=== PATIENT | female | born 1970 | race Caucasian/White ===

== ENCOUNTER 2019-02-27 12:39 | Emergency (ER) | payer SELFPAY ==
[2019-02-27 13:47] LABS: Bilirubin Negative (Negative); Blood, Urine Negative (Negative); Glucose, Urine (Dipstick) Negative (Negative); Leukocyte Negative (Negative); Nitrite Negative (Negative); Protein, Urine (Dipstick) 30 mg/dL (Neg-Trace); Urobilinogen 0.2 mg/dL (Less than 2)
[2019-02-27 13:48] LABS: Clarity Hazy (Clear)
[2019-02-27 13:51] LABS: Bacteria/HPF 1+ HPF (None Seen); RBC/HPF 0-3 HPF (0-3); WBC/HPF 0-3 HPF (0-3)
== END 2019-02-27 14:10 | disposition home or self-care (01) ==
LOC: MADERS 12:39
DX: M54.6 Pain in thoracic spine (principal); F17.210 Nicotine dependence, cigarettes, uncomplicated
CPT/HCPCS: 81003; 81015; 99283

== ENCOUNTER 2019-09-07 06:24 | Emergency (ER) | payer SELFPAY ==
[2019-09-07] MEDS ORDERED: Nitroglycerin 2% Ointment 1 INCH/1 GM Packet ONE (06:47)
[2019-09-07 06:50] LABS: #Basophils 0.1 thou/uL (0.0-0.2); #Eosinphils 0.1 thou/uL (0.0-0.7); #Lymphocytes 2.9 thou/uL (1.20-3.40); #Monocytes 0.7 thou/uL (0.11-0.59); #Neutrophils 2.6 thou/uL (1.40-6.50); %Basophils 1.6 % (0.0-1.0); %Lymphocytes 45.7 % (21.0-51.0); %Monocytes 10.8 % (0.0-10.0); %Neutrophils 40.9 % (42.0-75.0); Hemoglobin 14.5 g/dL (12.0-16.0); Mean Corpuscular HGB CONC 32.1 g/dL (32.0-36.0); Mean Corpuscular Hemoglobin 34.1 pg (27.0-31.0); Mean Corpuscular Volume 106.3 fL (78.0-98.0); Mean Platelet Volume 7.4 fL (7.4-10.4); Platelet Count 213 thou/uL (130-400); RBC Distribution Width 11.2 % (11.5-14.5); Red Blood Cell (RBC) Count 4.25 mill/uL (4.20-5.40); White Blood Cell (WBC) Count 6.4 thou/uL (4.8-10.8)
[2019-09-07 06:56] LABS: ALT (SGPT) 306 U/L (8-55); AST (SGOT) 166 U/L (5-34); Albumin 4.6 g/dL (3.5-5.0); Alkaline Phosphatase 87 U/L (40-110); Anion Gap 22 mmol/L (10-20); BUN (Urea Nitrogen) 8 mg/dL (7.0-18.7); Bilirubin, Total 0.6 mg/dL (0.2-1.2); Calc. Creatinine Clearance 0 mL/min (70-130); Calcium 8.9 mg/dL (7.8-10.44); Carbon Dioxide 19 mmol/L (22-29); Chloride 101 mmol/L (98-107); Estimated GFR-MDRD Greater than 90; Globulin 3.4 g/dL (2.4-3.5); Glucose 78 mg/dL (70-105); Magnesium 1.6 mg/dL (1.6-2.6); Potassium 3.3 mmol/L (3.5-5.1); Sodium 139 mmol/L (136-145)
[2019-09-07 07:00] LABS: Anisocytosis SLIGHT = 6-15 cells (100X) (0-5/hpf)
[2019-09-07 07:01] LABS: Macrocytosis SLIGHT = 6-15 cells (100X) (0-5/hpf); Platelet Morphology Comment Appears Adequate
[2019-09-07] MEDS ORDERED: Lorazepam 1 MG TAB ONE (07:01)
[2019-09-07 07:10] LABS: Acetaminophen Less than 6.0 mcg/mL (10.0-30.0); Alcohol 143 mg/dL (Less than 10); Salicylate Less than 8.0 mg/dL (15.0-30.0)
[2019-09-07 07:23] LABS: Amphetamine Not Detected (NotDetected); Barbiturates Screen Not Detected (NotDetected); Benzodiazepine Screen Not Detected (NotDetected); Cocaine Metabolite Screen Not Detected (NotDetected); Medtox Control Line Valid? VALID (VALID); Methadone Not Detected (NotDetected); Methamphetamine Not Detected (NotDetected); Opiate Screen Not Detected (NotDetected); Oxycodone Screen Not Detected (NotDetected); Phencyclidine (PCP) Not Detected (NotDetected); THC/Cannabinoid Screen Not Detected (NotDetected); Tricyclic Screen Not Detected (NotDetected)
--- NOTE | 2019-09-07 07:39 | RAD ---
Chest one view HISTORY: Chest pain. FINDINGS: No comparison. Cardiac silhouette is magnified by projection. Pulmonary vasculature is unre markable. Mediastinum is midline. Punctate metallic density projecting over the aortic arch is favored to repre sent extrinsic artifact. Postoperative changes of the cervical spine are apparent. No lobar consolidation or evidence of pneumothorax. Hazy density projecting over each lung base favor ed to represent overlying soft tissues, possibly breast implants. mold cooler leads overlie the chest. IMPRESSION : No active cardiopulmonary abnormalities are demonstrated.
[2019-09-07] MEDS ORDERED: Potassium Chloride 20 MEQ TAB ONE (07:40)
[2019-09-07] MEDS ORDERED: Lorazepam 2 MG/ML VIAL ONE ×2 (07:50→08:45)
[2019-09-07] MEDS ORDERED: Thiamine HCl 200 MG/2 ML VIAL ONE (07:51)
--- NOTE | 2019-09-07 07:59 | CT ---
CT ANGIOGRAM THORAX WITH IV CONTRAST AND 3-D RECONSTRUCTIONS CLINICAL INDICATION: Sudden onset of chest pain. COMPARISON: None FINDINGS: Pulmonary arteries: No filling defects are seen in the pulmonary arteries to suggest a pulmonary embo david. Aorta: The aorta is normal in caliber without evidence of an aortic dissection. Lungs: Clear without evidence of consolidation or pleural effusion. Mediastinum: There is no evidence of lymphadenopathy. Thyroid gland: Normal CT appearance. Osseous structures: No acute process. Chest wall: Bilateral breast prostheses are noted in place. Medial wall of the right breast implant i s not well delineated on this examination. Capsular rupture could not be excluded based on this exam. Breast implants are otherwise symmetric in appearance bilaterally. Upper abdomen: Diminished attenuation of the liver relative to the spleen suggesting diffuse fatty in filtration. Remainder of the upper abdomen demonstrates a normal CT appearance. IMPRESSION: 1. No CT evidence of a pulmonary embolus. 2. Bilateral breast prostheses are noted. The capsule of the medial aspect of the right breast implan t is not well delineated. Capsular disruption could not be entirely excluded based on CT evaluation. 3. Fatty infiltration liver.
[2019-09-07] MEDS ORDERED: Sodium Chloride 0.9% 1,000 ML BAG ONE (10:06)
[2019-09-07] MEDS ORDERED: Sodium Chloride 0.9% 100 ML BAG ONE (10:42)
[2019-09-07] MEDS ORDERED: Iopamidol 370 76% 125 ML VIAL FS ONE (11:48)
== END 2019-09-07 10:35 | disposition short-term general hospital (02) ==
LOC: MADERS 06:24
DX: R07.9 Chest pain, unspecified (principal); F10.239 Alcohol dependence with withdrawal, unspecified; Y90.6 Blood alcohol level of 120-199 mg/100 ml; K70.10 Alcoholic hepatitis without ascites; I10 Essential (primary) hypertension; F17.210 Nicotine dependence, cigarettes, uncomplicated; E87.6 Hypokalemia
CPT/HCPCS: 71045; 71275; 80053; 80306; 80307; 83605; 83735; 83880; 84443; 84484; 85025; 93005; 96361; 96374; 96375; 96376; J2060; J3411; J3490; J7050; Q9967